=== PATIENT | male | born 1940 | race Caucasian/White ===

== ENCOUNTER 2018-05-23 05:25 | Day surgery (SDC) | payer OTHER ==
[~2018-05-23] VITALS: Ht 185.4 cm; Wt 104.3 kg
[2018-05-23] MEDS ORDERED: GABA-531 PO (06:34)
[2018-05-23] MEDS ORDERED: CEFAZOLIN 1 GM IVPB PREMIX 50 ML IV ONE (07:00)
[2018-05-23] MEDS ORDERED: ePHEDrine sulfate 50 MG/ML VIAL IVP ONE (07:40)
[2018-05-23] MEDS ORDERED: BUPIVACAINE /PF 0.25% 30 ML VIAL INJ ONE (07:40)
[2018-05-23] MEDS ORDERED: DEXAMETHASONE SOD PHOSPHATE 4 MG/ML VIAL IVP ONE (07:40)
[2018-05-23] MEDS ORDERED: SEVOFLURANE 15 MIN GAS INH ONE (07:40)
[2018-05-23] MEDS ORDERED: fentaNYL CITRATE/PF 100 MCG/2 ML AMP IVP ONE (07:40)
[2018-05-23] MEDS ORDERED: PROPOFOL 200MG/ 20ML VIAL (DIPRIVAN) IV ONE (07:40)
[2018-05-23] MEDS ORDERED: ROCURONIUM BROMIDE 10 MG/ML (ZEMURON) IV ONE (07:40)
[2018-05-23] MEDS ORDERED: NS IRRIG SOLN 1000 ML IR ONE (07:40)
[2018-05-23] MEDS ORDERED: MIDAZOLAM HCL 5 MG/5 ML VIAL IVP ONE (07:40)
[2018-05-23] MEDS ORDERED: LR 1,000 ML IV.SOLN IV ONE (07:40)
[2018-05-23] MEDS ORDERED: fentaNYL CITRATE/PF 100 MCG/2 ML AMP IVP PRN ×2 (09:00)
[2018-05-23] MEDS ORDERED: ONDANSETRON HCL 4 MG/2 ML VIAL IVP PRN ×2 (09:00→13:15)
[2018-05-23] MEDS ORDERED: ONDANSETRON 4 MG ODT TAB PO PRN (13:15)
[2018-05-23] MEDS ORDERED: HYDROcodone/ACETAMIN 5-325 MG TAB (NORCO/ VICODIN) PO PRN (13:15)
[2018-05-23] MEDS ORDERED: fentaNYL CITRATE/PF 100 MCG/2 ML AMP ONE (13:46)
[2018-05-23 14:10] VITALS: BP_SYST 132
[2018-05-23 14:15] VITALS: BP_SYST 132
[2018-05-23] MEDS ORDERED: MORPHINE 4 MG/ML INJ. SYRINGE IVP PRN (16:15)
[2018-05-23] MEDS: GABAPENTIN 300 MG CAPSULE PO SCH ×2 (16:23→20:29)
[2018-05-23] MEDS: KCL 20 mEq in D5/0.45NS 1000mL 1,000 ML IV SCH ×2 (16:23→23:10)
[2018-05-23] MEDS: MORPHINE 4 MG/ML INJ. SYRINGE IVP PRN (16:24)
[2018-05-23 17:21] VITALS: BP_SYST 118
[2018-05-23] MEDS: CALCIUM 500 MG/TAB PO SCH (20:29)
[2018-05-23 20:30] VITALS: BP_SYST 114
[2018-05-23 21:20] LABS: ALBUMIN 3.2 g/dL (3.4-4.8); CALCIUM 9.2 mg/dL (8.4-11.0)
[2018-05-24 00:04] VITALS: BP_SYST 116
[2018-05-24] MEDS: MORPHINE 4 MG/ML INJ. SYRINGE IVP PRN (02:18)
[2018-05-24] MEDS: KCL 20 mEq in D5/0.45NS 1000mL 1,000 ML IV SCH ×3 (02:35→12:06)
[2018-05-24] MEDS ORDERED: LEVOTHYROXINE SODIUM 0.15 MG TABLET PO SCH (07:00)
[2018-05-24 08:10] VITALS: BP_SYST 121
[2018-05-24] MEDS: CALCIUM 500 MG/TAB PO SCH (08:11)
[2018-05-24] MEDS: GABAPENTIN 300 MG CAPSULE PO SCH ×2 (08:11→12:06)
[2018-05-24 10:07] LABS: ALBUMIN 2.7 g/dL (3.4-4.8); CALCIUM 9.3 mg/dL (8.4-11.0)
[2018-05-24 12:08] VITALS: BP_SYST 131
[2018-05-24 13:02] VITALS: BP_SYST 131
== END 2018-05-24 14:05 | disposition home or self-care (01) ==
LOC: SMU 05:25 → SDS 05:25 → EDSTATUS 07:30 → SMU 14:33 → SDS 05-24 14:05
PROVIDERS: ATTEND Otolaryngology
DX: E04.2 Nontoxic multinodular goiter (principal); Z98.890 Other specified postprocedural states; Z79.899 Other long term (current) drug therapy; G62.9 Polyneuropathy, unspecified
CPT/HCPCS: 36415; 60240; 82040; 82310; 83970; 87081 ×2; 88307; C1782; J0690; J1100; J2250; J2270 ×2; J2704; J3010; J3490; J7120